=== PATIENT | male | born 1990 | race Two or more races ===

== ENCOUNTER 2020-05-27 19:46 | Emergency (ER) | payer SELFPAY ==
[~2020-05-27] VITALS: Ht 172.7 cm; Wt 75.9 kg
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
[2020-05-27] MEDS ORDERED: ORPHENADRINE CITRATE 60 MG/2 ML VIAL. IV ONE (20:15)
[2020-05-27] MEDS ORDERED: ONDANSETRON PF 4 MG/2 ML VIAL. IVP ONE (20:15)
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
[2020-05-27 22:00] VITALS: BP 149/90
[2020-05-27 22:05] LABS: BILIRUBIN,URINE NEGATIVE (NEG); CLARITY,URINE CLEAR; COLOR,URINE AMBER; NITRITE,URINE NEGATIVE (NEG); PH,URINE 6.5 (<5.0-8.0); PROTEIN,URINE 30 mg/dL (NEG-TRACE)
[2020-05-27 22:17] LABS: BACTERIA,URINE FEW /HPF (0-FEW); HYALINE CASTS, URINE FEW /HPF; SPERM,URINE PRESENT /HPF; SQUAMOUS EPITHELIAL CELL,UR FEW /LPF
[2020-05-27] MEDS ORDERED: CYCL10TA2 PO (22:29)
[2020-05-27] MEDS ORDERED: NAPR-683 PO (22:29)
== END 2020-05-27 22:56 | disposition home or self-care (01) ==
LOC: ER 19:46
DX: S20.219A Contusion of unspecified front wall of thorax, initial encounter (principal); S60.212A Contusion of left wrist, initial encounter; R55 Syncope and collapse; Y08.89XA Assault by other specified means, initial encounter; Y93.89 Activity, other specified; Y92.89 Other specified places as the place of occurrence of the external cause; Y99.8 Other external cause status
CPT/HCPCS: 70450; 71250; 72125; 73110; 81001; 96374; 96375; 99285; J2360; J2405